=== PATIENT | male | born 1990 | race Caucasian/White ===

== ENCOUNTER 2025-04-22 20:13 | Emergency (ER) | payer BC ==
[~2025-04-22] VITALS: Ht 182.8 cm; Wt 86.2 kg
[~2025-04-22 20:13] MED LIST: ALBUTEROL0.09 MG/A2 IH; ATIVAN0.5 MG PO; FLAGYL500 MG PO; FLONASE0.05 MG/AC NS; IBU-8800 MG PO; LOMOTIL 0.025 M1 TA1 PO; LOMOTIL 0.025 M1 TAB PO; METHOCARBAMOL500 M1 PO; MOTRIN800 MG PO; NAPROXEN250 MG PO; NKHM; NORCO 5-325 TA1 EACH PO; Phenergan25 MG PO; TAMIFLU 75MG CA75 MG PO; ZANTAC150 MG PO; ZITHROMAX Z-PA250 MG PO; ZOFRAN ODT4 MG SL
[2025-04-22 20:39] VITALS: BP 118/72
[2025-04-22 21:07] LABS: BASO # 0.0 10*3/uL (0.0-0.1); BASO % 0.2 % (0.0-1.0); EOS # 0.1 10*3/uL (0.0-0.4); EOS % 2.9 % (1.0-4.0); MEAN CELL VOLUME 92.9 fl (80.0-94.0); MEAN CORPUSCULAR HGB 31.7 pg (27.0-31.0); MEAN PLATELET VOLUME 10.2 fl (9.6-12.3); MONO # 0.5 10*3/uL (0.1-1.0); MONO % 10.8 % (3.0-9.0); NEUT # 2.7 10*3/uL (2.3-7.9); NEUT % 59.6 % (47.0-73.0); NUCLEATED RED BLOOD CELL 0.0 % (0.0-0.0); NUCLEATED RED BLOOD CELL 0.0 10*3/uL (0.0-0.0); PLATELET COUNT AUTOMATED 166 10*3/uL (130-400); RED CELL DISTRI WIDTH 12.2 % (0-14.5)
[2025-04-22 21:30] LABS: BUN 13 mg/dl (9-23); CPK 98 U/L (34-171)
== END 2025-04-22 22:45 | disposition home or self-care (01) ==
LOC: ED 20:13
PROVIDERS: Internal Medicine
DX: I95.9 Hypotension, unspecified (principal); Z88.5 Allergy status to narcotic agent